=== PATIENT | female | born 1965 | race African-American/Black ===

== ENCOUNTER → 2016-12-04 | Emergency (ER) | payer OTHER ==
[~2016-12-04] MED LIST: traMADol HCL 50 MG TABLET ONE; traMADol HCL 50 MG TABLET PO ONE
[2016-12-04 19:45] VITALS: TEMP 97.6; BMI 35.4
--- NOTE | 2016-12-04 20:14 | PDOC ---
History of Present Illness - General History Source: Patient Exam Limitations: No Limitations - History of Present Illness Initial Comments: 12/04/16 20:24 The patient is a 51 year old female with a significant past medical history of HTN and diabetes who presents to the ED with several days of right leg pain. The patient reports she had a recent procedure to a bony fragment and had a plate for reinforcement on the spine on 10/08/16 at [facility]. She states she developed right lower back pain that radiates down her right leg to her right foot secondary to bearing weight on her right leg. She states walking worsens her right leg pain. Patient reports taking gabapentin, motrin, and aleve with no relief of leg pain. Denies recent injury. Denies fevers or chills. Denies focal numbness, weakness, or tingling. Denies nausea, vomiting, or diarrhea. Denies any other symptoms. Other past surgical hx: Hysterectomy Allergies: Aspirin <Bipin Charlton - Last Filed: 12/05/16 00:04> - General History Source: Patient <De Maloney - Last Filed: 12/05/16 19:25> - General Chief Complaint: Pain, Acute Stated Complaint: LEG PAIN Time Seen by Provider: 12/04/16 20:13 Past History <Bipin Charlton - Last Filed: 12/05/16 00:04> - Past Medical History Diabetes: Yes GI Disorders: Yes (ACID REFLUX) - Psycho/Social/Smoking Cessation Hx Anxiety: No Suicidal Ideation: No Smoking Status: No Smoking History: Never smoked Have you smoked in the past 12 months: No Number of Cigarettes Smoked Daily: 0 Information on smoking cessation initiated: No Hx Alcohol Use: No Drug/Substance Use Hx: No <De Maloney - Last Filed: 12/05/16 19:25> - Past Medical History Allergies/Adverse Reactions: Allergies Allergy/AdvReac Type Severity Reaction Status Date / Time No Known Allergies Allergy Verified 12/04/16 19:43 Home Medications: Ambulatory Orders Gabapentin 300 mg PO DAILY 12/04/16 Tramadol HCl [Ultram -] 50 mg PO Q6H #30 tablet MDD 4 12/05/16 Review of Systems - Review of Systems Able to Perform ROS?: Yes Comments:: 12/04/16 20:25 CONSTITUTIONAL: No reported: Fever, Chills, Diaphoresis, Generalized Weakness, Malaise, Loss of Appetite HEENT: No reported: Rhinorrhea, Nasal Congestion, Throat Pain, Throat Swelling, Difficulty Swallowing, Mouth Swelling, Ear Pain, Eye Pain, Visual Changes CARDIOVASCULAR: No reported: Chest Pain, Syncope, Palpitations, Irregular Heart Rate, Lightheadedness, Peripheral Edema RESPIRATORY: No reported: Cough, Shortness of Breath, SOB with Exertion, Orthopnea, Wheezing , Stridor, Hemoptysis GASTROINTESTINAL: No reported: Abdominal pain, Abdominal Distension, Nausea, Vomiting, Diarrhea, Constipation, Melena, Hematochezia GENITOURINARY: No reported: Dysuria, Frequency, Urgency, Hesitancy, Flank Pain, Genital Pain MUSCULOSKELETAL: + back pain, leg pain No reported:, Joint Swelling, Neck Pain SKIN: No reported: Rash, Itching, Pallor HEMEATOLOGIC/IMMUNOLOGIC: No reported: Easy Bleeding, Easy Bruising, Lymphadenopathy, Frequent infections ENDOCRINE: No reported: Unexplained Weight Gain, Unexplained Weight Loss, Heat Intolerance , Cold Intolerance NEUROLOGIC: No reported: Headache, Focal Weakness, Paresthesias, Vertigo, Lightheadedness, Unsteady Gait, Seizure, Mental Status Changes, Incontinence PSYCHIATRIC: No reported: Anxiety, Depression All Other Systems: Reviewed and Negative <Bipin Charlton - Last Filed: 12/05/16 00:04> *Physical Exam - Vital Signs Last Vital Signs Temp Pulse Resp BP Pulse Ox 97.6 F 66 20 112/70 99 12/04/16 19:43 12/04/16 19:43 12/04/16 19:43 12/04/16 19:43 12/04/16 19:43 - Physical Exam Comments: 12/04/16 20:25 GENERAL: Well developed, well nourished. Awake and alert. No acute distress. HEENT: Normocephalic, atraumatic. PERRLA, EOMI. No conjunctival pallor. Sclera are non- icteric. Moist mucous membranes. Oropharynx is clear. NECK: Supple. Full ROM. No JVD. Carotid pulses 2+ and symmetric, without bruits. No thyromegaly. No lymphadenopathy. CARDIOVASCULAR: Regular rate and rhythm. No murmurs, rubs, or gallops. Distal pulses are 2+ and symmetric. PULMONARY: No evidence of respiratory distress. Lungs clear to auscultation bilaterally. No wheezing, rales or rhonchi. ABDOMINAL: Soft. Non-tender. Non-distended. No rebound or guarding. No organomegaly. Normoactive bowel sounds. MUSCULOSKELETAL: + Slight right lumbar region tenderness Normal range of motion at all joints. No bony deformities. No CVA tenderness. EXTREMITIES: No cyanosis. No clubbing. No edema. No calf tenderness. SKIN: Warm and dry. Normal capillary refill. No rashes. No jaundice. NEUROLOGICAL: Alert, awake, appropriate. Cranial nerves 2-12 intact. No deficits to light touch and temperature in face, upper extremities and lower extremities. No motor deficits in the in face, upper extremities and lower extremities. Normoreflexic in the upper and lower extremities. Normal speech. Toes are down- going bilaterally. Gait is normal without ataxia. PSYCHIATRIC: Cooperative. Good eye contact. Appropriate mood and affect. <Bipin Charlton - Last Filed: 12/05/16 00:04> - Vital Signs Last Vital Signs Temp Pulse Resp BP Pulse Ox 97.6 F 66 20 112/70 99 12/04/16 19:43 12/04/16 19:43 12/04/16 19:43 12/04/16 19:43 12/04/16 19:43 <De Maloney - Last Filed: 12/05/16 19:25> ED Treatment Course - RADIOLOGY Radiograph Interpretation: 12/05/16 00:04 EXAM: CT lumbar spine without contrast FINDINGS: The lumbar vertebrae are normally aligned. No fracture or destructive bone lesion. L4-5 interspinous fusion device noted. There may be some degree of canal narrowing at L4-5 secondary to disc bulging and posterior element hypertrophy but this is best evaluated with MRI. L5-S1 facet hypertrophy. 4 cm x 5 cm soft tissue/fluid in the subcutaneous tissues of the lower back most likely postoperative but followup recommended to make sure there is no infection. Reported by: Imaging front office agent <Bipin Charlton - Last Filed: 12/05/16 00:04> Medical Decision Making - Medical Decision Making 12/05/16 00:22 Dr. Maloney: The scribe's documentation has been prepared under my direction and personally reviewed by me in its entirery. I confirm that the note above accurately reflects all work, treatment, procedures, and medical decision making performed by me. 12/05/16 19:25 <De Maloney - Last Filed: 12/05/16 19:25> *DC/Admit/Observation/Transfer - Attestations Scribe Attestion: 12/04/16 20:25 Documentation prepared by Bipin Charlton, acting as manager of medical for De Maloney MD <Bipin Charlton - Last Filed: 12/05/16 00:04> - Discharge Dispostion Admit: No <De Maloney - Last Filed: 12/05/16 19:25> Diagnosis at time of Disposition: Bulging disc Low back pain Qualifiers: Chronicity: unspecified Back pain laterality: right Sciatica presence: with sciatica Sciatica laterality: sciatica of right side Qualified Code(s): M54.41 - Lumbago with sciatica, right side - Discharge Dispostion Disposition: HOME Condition at time of disposition: Stable - Prescriptions Prescriptions: Tramadol HCl [Ultram -] 50 mg PO Q6H #30 tablet MDD 4 - Referrals Referrals: Liza Galvez [Primary Care Provider] - - Patient Instructions Printed Discharge Instructions: Herniated Disc Additional Instructions: Please follow up with your surgeon to further evaluate the disc bulge of the lumbar spine.
[2016-12-05 00:41] VITALS: BP 129/86; PULSE 61
== END | disposition home or self-care (01) ==
LOC: JER 19:25
DX: M54.41 Lumbago with sciatica, right side (principal)
CPT/HCPCS: 72131-TC; 99282-25

== ENCOUNTER 2017-10-24 23:14 | Emergency (ER) | payer OTHER ==
[2017-10-24 23:35] VITALS: BP 132/78; PULSE 84; TEMP 99; BMI 33.1
--- NOTE | 2017-10-25 00:47 | PDOC ---
History of Present Illness - General History Source: Patient Exam Limitations: No Limitations - History of Present Illness Initial Comments: 10/25/17 02:04 The patient is a 51 year old female with a significant past medical history of chronic back pain (s/p spinal fusion 2x), diabetes, and hypertension who presents to the emergency department for evaluation of back pain. The patient reports severe back pain since yesterday. She describes the back pain as sharp, burning, radiating towards the right area, ranked 10/10 in severity. Pt reports the pain is exacerbated with movement. She reports moderate RLQ abdominal pain secondary to her constant coughing. She reports taking Tylenol and antibiotic ( unsure of name) with mild alleviation to symptoms. Of note, the patient finishing her pain medication (oxycodone and valium) for her spinal fusion (L4, L5) done on 10/16/2017. She notes her surgeon (Dr. Loya) will be gone for 2 weeks. The patient also notes a home health care nurse has been visiting to change her drainage tube. The patient denies chest pain, shortness of breath, fever, chills, or fecal/ urinary incontinence. Allergies: Aspirin Social History: No reported alcohol, cigarette, or drug use. Surgical History: Spinal fusion (2x), gastric sleeve (2015), partial hysterectomy (2012) PCP: Dr. Galvez ([phone]) <Priyanka Goodwin - Last Filed: 10/25/17 02:04> <Denise Stuart - Last Filed: 10/25/17 02:17> - General Chief Complaint: Pain Stated Complaint: BACK PAIN Time Seen by Provider: 10/25/17 00:03 Past History <Priyanka Goodwin - Last Filed: 10/25/17 02:04> - Past Medical History Anemia: No Asthma: No Cancer: No Cardiac Disorders: No CVA: No COPD: No DVT: No Dementia: No Diabetes: Yes Dialysis: No GI Disorders: Yes (ACID REFLUX) Disorders: No HTN: Yes Hypercholesterolemia: No Kidney Stones: No Liver Disease: No Psychiatric Problems: No Seizures: No Thyroid Disease: No Lung CA: No - Surgical History Abdominal Surgery: Yes (Gastric sleeve) Appendectomy: No Cardiac Surgery: No Cholecystectomy: No Gastric Stapling: No GI Surgery: No Lung Surgery: No Neurologic Surgery: No - Suicide/Smoking/Psychosocial Hx Smoking Status: No Smoking History: Never smoked Have you smoked in the past 12 months: No Number of Cigarettes Smoked Daily: 0 Information on smoking cessation initiated: No Hx Alcohol Use: No Drug/Substance Use Hx: No Substance Use Type: None <Denise Stuart - Last Filed: 10/25/17 02:17> - Past Medical History Allergies/Adverse Reactions: Allergies Allergy/AdvReac Type Severity Reaction Status Date / Time aspirin Allergy Severe Rash Verified 10/25/17 01:44 Home Medications: Ambulatory Orders Hydrocodone/Acetaminophen [Vicodin 5-300 mg Tablet] 2 each PO BID #20 tablet MDD 4 10/25/17 Review of Systems - Review of Systems Able to Perform ROS?: Yes Comments:: GENERAL/CONSTITUTIONAL: No fever or chills. No weakness. HEAD, EYES, EARS, NOSE AND THROAT: No change in vision. No ear pain or discharge. No sore throat. CARDIOVASCULAR: No chest pain or shortness of breath. RESPIRATORY: No cough, wheezing, or hemoptysis. GASTROINTESTINAL: No nausea, vomiting, diarrhea or constipation. GENITOURINARY: No dysuria, frequency, or change in urination. MUSCULOSKELETAL: (+)Back pain. (+)RLQ pain. No neck pain. SKIN: No rash NEUROLOGIC: No headache, vertigo, loss of consciousness, or change in strength/ sensation. ENDOCRINE: No increased thirst. No abnormal weight change. HEMATOLOGIC/LYMPHATIC: No anemia, easy bleeding, or history of blood clots. ALLERGIC/IMMUNOLOGIC: No hives or skin allergy. <EmanuelPriyanka hahn - Last Filed: 10/25/17 02:04> *Physical Exam - Vital Signs Last Vital Signs Temp Pulse Resp BP Pulse Ox 99.0 F 84 18 132/78 100 10/24/17 23:32 10/24/17 23:32 10/24/17 23:32 10/24/17 23:32 10/24/17 23:32 - Physical Exam Comments: GENERAL: Awake, alert, and fully oriented, in no acute distress HEAD: No signs of trauma EYES: PERRLA, EOMI, sclera anicteric, conjunctiva clear ENT: Auricles normal inspection, hearing grossly normal, nares patent, oropharynx clear without exudates. Moist mucosa NECK: Normal ROM, supple. LUNGS: Breath sounds equal, clear to auscultation bilaterally. No wheezes, and no crackles HEART: Regular rate and rhythm, normal S1 and S2, no murmurs, rubs or gallops ABDOMEN: Soft, nontender, normoactive bowel sounds. No guarding, no rebound. No masses BACK: (+)L3-L5 midline vertical scar over the pine. Superior 1.5cm dehiscence. No surrounding erythema, warmth, minimally swollen around area of surgery. Soft tissue swelling. Minimal tenderness in an area. Normal for her post-surgical status. EXTREMITIES: Normal range of motion, no edema. No clubbing or cyanosis. No cords, erythema, or tenderness NEUROLOGICAL: Cranial nerves II through XII grossly intact. SKIN: Warm, Dry, normal turgor, no rashes or lesions noted. <Priyanka Goodwin - Last Filed: 10/25/17 02:04> - Vital Signs Last Vital Signs Temp Pulse Resp BP Pulse Ox 99.0 F 84 18 132/78 100 10/24/17 23:32 10/24/17 23:32 10/24/17 23:32 10/24/17 23:32 10/24/17 23:32 <Denise Stuart - Last Filed: 10/25/17 02:17> ED Treatment Course - LABORATORY CBC & Chemistry Diagram: 10/25/17 01:07 10/25/17 01:07 - ADDITIONAL ORDERS Additional order review: Laboratory Results 10/25/17 10/25/17 01:07 01:07 Sodium 140 Potassium 4.1 Chloride 106 Carbon Dioxide 29 Anion Gap 5 L BUN 11 Creatinine 0.7 Creat Clearance w eGFR > 60 Random Glucose 174 H Calcium 8.8 Total Bilirubin 0.3 AST 22 ALT 27 Alkaline Phosphatase 78 C-Reactive Protein 6.5 H Total Protein 6.3 L Albumin 2.8 L 10/25/17 01:07 RBC 3.70 MCV 81.0 MCHC 32.9 RDW 13.9 MPV 6.6 L Neutrophils % 49.0 Lymphocytes % 34.3 Monocytes % 10.8 H Eosinophils % 5.2 H Basophils % 0.7 - Medications Given in the ED: ED Medications Discontinued Medications Generic Name Dose Route Start Last Admin Trade Name Freq PRN Reason Stop Dose Admin Diazepam 5 mg 10/25/17 00:51 10/25/17 01:26 Valium - PO 10/25/17 00:52 5 mg ONCE ONE Administration Oxycodone/Acetaminophen 2 combo 10/25/17 00:50 10/25/17 01:25 Percocet 5/325 - PO 10/25/17 00:51 2 combo ONCE ONE Administration <Priyanka Goodwin - Last Filed: 10/25/17 02:04> - LABORATORY CBC & Chemistry Diagram: 10/25/17 01:07 10/25/17 01:07 <Denise Stuart - Last Filed: 10/25/17 02:17> Medical Decision Making - Medical Decision Making 10/25/17 02:15 Pt comes in requesting pain meds; states that she ran out of her vicodin for pain; surgeons are out of town. Pt is able to move without pain, and ambulate without difficulty. SHe is afebrile. She has no infection of her wound or pus or drainiage, <Denise Stuart - Last Filed: 10/25/17 02:17> *DC/Admit/Observation/Transfer - Attestations Scribe Attestion: Documentation prepared by Priyanka Goodwin, acting as medical office technician for Denise Stuart MD. <Priyanka Goodwin - Last Filed: 10/25/17 02:04> - Discharge Dispostion Decision to Admit order: No <Denise Stuart - Last Filed: 10/25/17 02:17> Diagnosis at time of Disposition: Surgical wound dehiscence, Low back pain - Discharge Dispostion Disposition: HOME Condition at time of disposition: Stable - Prescriptions Prescriptions: Hydrocodone/Acetaminophen [Vicodin 5-300 mg Tablet] 2 each PO BID #20 tablet MDD 4 - Referrals Referrals: Liza Galvez [Primary Care Provider] - - Patient Instructions Printed Discharge Instructions: How to Care for a Surgical Wound - Post Discharge Activity
[2017-10-25] MEDS ORDERED: diazePAM 5 MG TABLET PO ONE (00:51)
[2017-10-25 01:15] LABS: BASO % 0.7 % (0-2.0); EOS % 5.2 % (0-4.5); HEMATOCRIT 29.9 % (32.4-45.2); HEMOGLOBIN 9.8 GM/dL (10.7-15.3); LYMPH % 34.3 % (8-40); MCH 26.6 pg (25.7-33.7); MCHC 32.9 g/dl (32.0-36.0); MEAN PLT VOLUME 6.6 fl (7.5-11.1); MONO % 10.8 % (3.8-10.2); PLATELET COUNT 448 K/MM3 (134-434); RDW 13.9 % (11.6-15.6)
[2017-10-25] MEDS ORDERED: diazePAM 5 MG TABLET ONE (01:16)
[2017-10-25 01:38] LABS: ALBUMIN 2.8 g/dl (3.4-5.0); ANION GAP 5 (8-16); BILIRUBIN,TOTAL 0.3 mg/dL (0.2-1.0); BLOOD UREA NITROGEN 11 mg/dL (7-18); CALCIUM 8.8 mg/dL (8.5-10.1); CHLORIDE 106 mmol/L (98-107); CO2 29 mmol/L (21-32); CREATININE 0.7 mg/dL (0.55-1.02); GLUCOSE,RANDOM 174 mg/dL (74-106); POTASSIUM 4.1 mmol/L (3.5-5.1); SGOT/AST 22 U/L (15-37); SGPT/ALT 27 U/L (12-78); SODIUM 140 mmol/L (136-145); TOT PROT 6.3 g/dl (6.4-8.2)
[2017-10-25 01:39] LABS: ALK PHOS 78 U/L (45-117)
== END 2017-10-25 02:15 | disposition home or self-care (01) ==
LOC: JER 23:14
DX: T81.31XA Disruption of external operation (surgical) wound, not elsewhere classified, initial encounter (principal); M54.5 Low back pain; I10 Essential (primary) hypertension; E11.9 Type 2 diabetes mellitus without complications; K21.9 Gastro-esophageal reflux disease without esophagitis; Z98.84 Bariatric surgery status
CPT/HCPCS: 36415; 80053; 85025; 85651; 86140; 99282-25